=== PATIENT | female | born 1955 ===

== ENCOUNTER 2018-06-15 05:28 | Day surgery (SDC) | payer OTHER ==
[~2018-06-15 05:28] MED LIST: ALPHAGAN P5 M2 OP; INDOCIN50 MG; [UNRECOGNIZED DRUG - OTHER]
== END 2018-06-15 09:35 | disposition home or self-care (01) ==
LOC: CIR.AMB 05:28
DX: D17.1 Benign lipomatous neoplasm of skin and subcutaneous tissue of trunk (principal)